=== PATIENT | female | born 1995 | race Caucasian/White ===

== ENCOUNTER 2021-08-31 04:07 | Day surgery (SDC) | payer BC ==
[2021-08-26 17:30] VITALS: BMI 25.0
[2021-08-31] MEDS ORDERED: KETOROLAC TROMETHAMINE 30 MG/1 ML VIAL ONE (07:10)
[2021-08-31] MEDS ORDERED: ONDANSETRON 4 MG/2 ML VIAL ONE (07:10)
[2021-08-31] MEDS ORDERED: DEXAMETHASONE SOD PHOSPHATE 4 MG/1 ML VIAL ONE (07:10)
[2021-08-31] MEDS ORDERED: MIDAZOLAM HCL 2 MG/2 ML SINGLE DOSE VIAL ONE (07:10)
[2021-08-31] MEDS ORDERED: PROPOFOL 20 ML ONE ×2 (07:10)
[2021-08-31] MEDS ORDERED: oxyCODONE HCL 5 MG TABLET PO PRN ×2 (07:22→07:44)
[2021-08-31] MEDS ORDERED: ONDANSETRON 4 MG/2 ML VIAL IVPUSH PRN ×2 (07:22→07:44)
[2021-08-31] MEDS ORDERED: LACTATED RINGERS SOLUTION 1,000 ML IV SCH (07:30)
[2021-08-31] MEDS ORDERED: IBUPROFEN 600 MG TABLET (FP) PO PRN (07:44)
[2021-08-31] MEDS ORDERED: IBUPROFEN 800 MG/8 ML IJ IVPB PRN (07:44)
[2021-08-31] MEDS ORDERED: ELECTROLYTE-148 SOLN 1,000 ML IV SCH (07:45)
[2021-08-31 11:08] VITALS: TEMP 97.2
[2021-08-31 11:11] VITALS: BP 118/80; PULSE 67
== END 2021-08-31 10:15 | disposition home or self-care (01) ==
LOC: JASU-SURG 04:07
PROVIDERS: ATTEND Obstetrics & Gynecology
PROC: 0UB98ZX Excision of Uterus, Via Natural or Artificial Opening Endoscopic, Diagnostic (ICD-10-PCS; 2021-08-31)
PROC: 0UBC8ZX Excision of Cervix, Via Natural or Artificial Opening Endoscopic, Diagnostic (ICD-10-PCS; principal; 2021-08-31 07:30)
DX: N84.0 Polyp of corpus uteri (principal); N84.1 Polyp of cervix uteri
CPT/HCPCS: 81025; 88305-TC; 94760

== ENCOUNTER 2023-12-12 04:20 | Day surgery (SDC) | payer BC ==
[2023-12-11 10:33] VITALS: BMI 30.3
[2023-12-12 11:59] LABS: HEMATOCRIT 40.5 % (32.4-45.2); HEMOGLOBIN 13.1 GM/dL (10.7-15.3); MCH 26.1 pg (25.7-33.7); MCHC 32.4 g/dl (32.0-36.0); MEAN CELL VOLUME 80.6 fl (80-96); MEAN PLT VOLUME 7.1 fl (7.5-11.1); PLATELET COUNT 323 10^3/uL (134-434); RBC 5.02 M/mm3 (3.60-5.2); RDW 13.7 % (11.6-15.6); WHITE BLOOD COUNT 5.8 K/mm3 (4.0-10.0)
[2023-12-12 12:05] LABS: INR 0.82 (0.83-1.09); PROTHROMBIN TIME (PATIENT) 9.5 SEC (9.7-13.0)
[2023-12-12 12:08] LABS: ACTIVATED PTT 36.3 SECONDS (25.2-36.5)
[2023-12-12 12:37] LABS: POTASSIUM 4.1 mmol/L (3.5-5.1)
[2023-12-12 12:38] LABS: CALCIUM 9.7 mg/dL (8.5-10.1)
[2023-12-12 12:40] LABS: ALBUMIN 3.9 g/dl (3.4-5.0); BLOOD UREA NITROGEN 12.7 mg/dL (7-18)
[2023-12-12 12:43] LABS: CREATININE 0.8 mg/dL (0.55-1.3)
[2023-12-12 12:44] LABS: BILIRUBIN,TOTAL 0.4 mg/dL (0.2-1); TOT PROT 7.5 g/dl (6.4-8.2)
[2023-12-12] MEDS ORDERED: PROPOFOL 20 ML ONE (14:52)
[2023-12-12] MEDS ORDERED: MIDAZOLAM HCL 2 MG/2 ML SINGLE DOSE VIAL ONE (14:52)
[2023-12-12] MEDS ORDERED: ONDANSETRON 4 MG/2 ML VIAL IVPUSH PRN (15:34)
[2023-12-12] MEDS ORDERED: oxyCODONE HCL 5 MG TABLET PO PRN (15:34)
[2023-12-12] MEDS ORDERED: ACETAMINOPHEN INJECTION 100 ML IVPB ONE (15:42)
[2023-12-12] MEDS: ACETAMINOPHEN 1000 MG/100 ML BAG IVPB ONE (15:45)
[2023-12-12] MEDS: DOXYCYCLINE INJECTION 100 MG in DEXTROSE 5%-WATER 100 ML IVPB ONE (15:57)
[2023-12-12] MEDS: LACTATED RINGERS SOLUTION 1,000 ML IV SCH (15:58)
[2023-12-12 16:38] VITALS: BP 115/67; PULSE 74; RESP 20; TEMP 97.5
== END 2023-12-12 17:35 | disposition home or self-care (01) ==
LOC: JASU-SURG 04:20
PROVIDERS: ATTEND Obstetrics & Gynecology
PROC: 10D17ZZ Extraction of Products of Conception, Retained, Via Natural or Artificial Opening (ICD-10-PCS; principal; 2023-12-12 13:30)
DX: O03.4 Incomplete spontaneous abortion without complication (principal)
CPT/HCPCS: 36415; 76998-TC; 80053; 84702; 85027; 85610; 85730; 86850; 86900; 86901; 88305-TC; 94760; J0131